=== PATIENT | male | born 1985 | race Caucasian/White ===

== ENCOUNTER 2023-08-27 07:00 | Outpatient (CLI) | payer MEDICAID ==
--- NOTE | 2023-08-27 19:56 | XRAY Report ---
PROCEDURE: Wrist 3+V LT INDICATIONS: LEFT WRIST SPRAIN TECHNIQUE: 3 views of the wrist were acquired. COMPARISON: None. FINDINGS: Bones: No acute fractures or dislocations. No suspicious bony lesions. Soft tissues: No suspicious soft tissue calcifications. IMPRESSION: No acute osseous abnormality. If there is clinical concern or persistent symptoms, additional imaging such as repeat radiographs or advanced imaging (e.g. CT, MRI) may be helpful for further evaluation. Reviewed by: Ricki Apodaca MD on 08/27/2023 7:54 PM PDT Approved by: Ricki Apodaca MD on 08/27/2023 7:54 PM PDT Station ID: [id number]
== END 2023-08-27 23:59 | disposition home or self-care (01) ==
LOC: DI.S 07:00
PROVIDERS: ATTEND Emergency Medicine
DX: S63.8X2A Sprain of other part of left wrist and hand, initial encounter (principal)